=== PATIENT | female | born 1990 | race African-American/Black ===

== ENCOUNTER 2022-01-23 08:06 | Inpatient (IN) | payer MEDICARE, MEDICAID ==
[~2022-01-23] VITALS: Ht 170.2 cm; Wt 49.9 kg
[2022-01-23 08:42] LABS: UCG SCREEN NEGATIVE
[2022-01-23 08:45] LABS: CLARITY URINE CLEAR (CLEAR); COLOR URINE YELLOW (YELLOW); KETONES URINE NEGATIVE (NEGATIVE); LEUKOCYTE ESTERASE URINE NEGATIVE (NEGATIVE); NITRITE URINE NEGATIVE (NEGATIVE); OCCULT BLOOD URINE NEGATIVE (NEGATIVE); PROTEIN URINE NEGATIVE (NEGATIVE); SPECIFIC GRAVITY URINE 1.027 (1.005-1.030)
[2022-01-23] MEDS ORDERED: LACTATED RINGERS 1,000 ML IV SCH (09:00)
[2022-01-23 09:01] LABS: BASOPHILS % 0.3 % (0.0-2.0); HEMATOCRIT. 43.3 % (36.0-48.0); HEMOGLOBIN. 14.3 g/dL (12.0-16.0); LYMPHOCYTES % 34.3 % (20.0-50.0); MEAN CORPUSCULAR HEMOGLOBIN 31.4 pg (28.0-32.0); MEAN CORPUSCULAR VOLUME 95.1 fL (81.0-99.0); MEAN PLATELET VOLUME 8.2 fl (7.4-10.4); MONOCYTES % 8.6 % (2.0-8.0); NEUTROPHILS % 55.8 % (40.0-76.0); PLATELET 155 x1000/uL (130-400); RED BLOOD CELL COUNT 4.55 mill/uL (4.2-5.4); RED CELL DISTRIBUTION WIDTH 13.3 % (11.6-14.6)
[2022-01-23 09:09] LABS: CHLORIDE 111 mEq/L (98-107)
[2022-01-23 09:12] LABS: PARTIAL THROMBOPLASTIN TIME 26.8 sec (23.4-31.0); PROTHROMBIN TIME 10.4 sec (9.6-11.0)
[2022-01-23] MEDS ORDERED: LACO200T2 PO ×2 (09:27)
[2022-01-23] MEDS ORDERED: ZONI100C45 PO ×2 (09:27)
[2022-01-23] MEDS ORDERED: LEVE750T35 PO (09:27)
[2022-01-23] MEDS ORDERED: SKIN ADHESIVE 0.7 GM EA TOP ONE (09:40)
[2022-01-23] MEDS ORDERED: BUPIVACAINE HCL/PF 0.5% (5MG/ML) 10ML ONE (09:41)
[2022-01-23] MEDS ORDERED: DEXAMETHASONE 4MG/ML 1ML VIAL ONE (10:13)
[2022-01-23] MEDS ORDERED: SUCCINYLCHOLINE CHLORIDE 200MG/10ML IV ONE (10:13)
[2022-01-23] MEDS ORDERED: ROCURONIUM BROMIDE 10MG/ML VIAL 5ML IV ONE (10:13)
[2022-01-23] MEDS ORDERED: LIDOCAINE HCL 1% 10 MG/ML 10ML VIAL ONE (10:13)
[2022-01-23] MEDS ORDERED: NEOSTIGMINE METHYLSULFATE 1MG/ML 10 ML VIAL ONE (10:13)
[2022-01-23] MEDS ORDERED: GLYCOPYRROLATE 0.2 MG/ML 2ML VIAL ONE ×2 (10:14)
[2022-01-23] MEDS ORDERED: FENTANYL CITRATE/PF 50MCG/ML 2ML VIAL ONE (10:14)
[2022-01-23] MEDS ORDERED: PROPOFOL 200MG/20ML VIAL IV ONE (10:14)
[2022-01-23] MEDS ORDERED: MIDAZOLAM HCL 2 MG/2 ML VIAL ONE (10:15)
[2022-01-23] MEDS ORDERED: HYDROMORPHONE HCL/PF 2MG/ML CPJ ONE (11:11)
[2022-01-23] MEDS ORDERED: ONDANSETRON HCL 4MG/2ML INJ IV PRN (11:30)
[2022-01-23] MEDS ORDERED: HYDROMORPHONE HCL/PF 2MG/ML CPJ IV PRN (11:30)
[2022-01-23] MEDS ORDERED: LABETALOL 5MG/ML SYR 20 MG/4 ML SYRINGE IV PRN (11:30)
[2022-01-23] MEDS ORDERED: MEPERIDINE HCL/PF 25MG/ML CPJ IV PRN (11:30)
[2022-01-23 16:00] VITALS: BP 119/66
[2022-01-23 16:13] VITALS: BP 119/66
[2022-01-23] MEDS ORDERED: NALOXONE HCL 0.4MG/ML VIAL IV PRN (17:45)
[2022-01-23 20:00] VITALS: BP 120/77
[2022-01-23] MEDS: ONDANSETRON HCL 4MG/2ML INJ IV PRN (20:46)
[2022-01-23] MEDS ORDERED: LEVETIRACETAM 500MG TABLET PO SCH (21:00)
[2022-01-23] MEDS: ZONISAMIDE 100MG CAPSULE PO SCH (21:00)
[2022-01-23] MEDS: HYDROCODONE/ACETAMINOPHEN 5/325MG TABLET PO PRN (22:42)
[2022-01-24] VITALS (7 sets, daily range): BP systolic 103–123; BP diastolic 64–79
[2022-01-24] MEDS ORDERED: NON FORMULARY PATIENT HOME MED XX SCH (02:45)
[2022-01-24 07:19] LABS: HEMOGLOBIN 13.3 g/dL (12.0-16.0); MEAN CORPUSCULAR HEMOGLOBIN 32.1 pg (28.0-32.0); PLATELET 150 x1000/uL (130-400); RED BLOOD CELL COUNT 4.15 mill/uL (4.2-5.4); RED CELL DISTRIBUTION WIDTH 12.8 % (11.6-14.6)
[2022-01-24] MEDS: ONDANSETRON HCL 4MG/2ML INJ IV PRN (08:25)
[2022-01-24] MEDS: ZONISAMIDE 100MG CAPSULE PO SCH ×2 (09:27→20:23)
[2022-01-24] MEDS: LACOSAMIDE 100 MG TABLET PO SCH ×2 (09:27→20:23)
[2022-01-24] MEDS: HYDROCODONE/ACETAMINOPHEN 5/325MG TABLET PO PRN (10:34)
[2022-01-24] MEDS ORDERED: LEVETIRACETAM 250MG TABLET PO SCH (21:00)
[2022-01-25] VITALS: BP 111/72
[2022-01-25 04:00] VITALS: BP 109/71
[2022-01-25 08:00] VITALS: BP 115/78
[2022-01-25] MEDS: ZONISAMIDE 100MG CAPSULE PO SCH (08:49)
[2022-01-25] MEDS: LACOSAMIDE 100 MG TABLET PO SCH (08:49)
[2022-01-25 10:05] VITALS: BP 115/78
== END 2022-01-25 10:37 | disposition home or self-care (01) | DRG 743 ==
LOC: SURGERY 08:06 → 6EST 15:12
PROVIDERS: ADMIT Obstetrics & Gynecology; ATTEND Obstetrics & Gynecology
PROC: 0UJ80ZZ Inspection of Fallopian Tube, Open Approach (ICD-10-PCS; principal; 2022-01-23)
PROC: 0UJ30ZZ Inspection of Ovary, Open Approach (ICD-10-PCS; 2022-01-23)
PROC: 0US90ZZ Reposition Uterus, Open Approach (ICD-10-PCS; 2022-01-23)
DX: D25.9 Leiomyoma of uterus, unspecified (principal); N85.2 Hypertrophy of uterus; Z20.822 Contact with and (suspected) exposure to COVID-19; N83.201 Unspecified ovarian cyst, right side
CPT/HCPCS: 36415; 80053; 80339; 81003; 81025; 85025; 85027; 86850; 86900; 87426; C1893; C9803; J0330; J1100; J1170; J2250; J2405; J2704; J2710; J3010; J3490